=== PATIENT | female | born 1970 | race African-American/Black ===

== ENCOUNTER 2019-03-08 07:45 | Emergency (ER) | payer OTHER ==
[~2019-03-08] VITALS: Ht 162.6 cm; Wt 127.9 kg
[2019-03-08 08:05] VITALS: Ht 162.6 cm; Wt 127.9 kg
[2019-03-08 08:54] LABS: CALCIUM 9.2 mg/dL (8.5-10.1); CHLORIDE SERUM 100 mmol/L (98-107); CREATININE SERUM 0.6 mg/dL (0.6-1.0); GFR1 > 60 mL/min; GLUCOSE SERUM 145 mg/dL (74-106); POTASSIUM SERUM 3.8 mmol/L (3.5-5.1); SODIUM SERUM 136 mmol/L (136-145)
[2019-03-08 08:59] LABS: ALBUMIN 3.7 g/dL (3.4-5.0); ALKALINE PHOSPHATASE 71 U/L (46-116); ALT/SGPT 68 U/L (14-59); AST/SGOT 42 U/L (15-37); BILIRUBIN TOTAL 0.27 mg/dL (0.20-1.00); PLATELET COUNT 379 x10^3mcL (130-400)
[2019-03-08 09:02] LABS: RED CELL DISTRIBUTION WIDTH 15.7 % (11.5-14.5)
[2019-03-08 09:08] LABS: ATYPICAL LYMPH 2 %; BAND NEUTROPHIL 0 % (0-10); BASOPHIL 0 % (0-2); MONOCYTE 4 % (0-7); SEGMENTED NEUTROPHILS 56 % (37-75)
[2019-03-08 09:11] LABS: PLATELET MORPHOLOGY GIANT PLATELET SEEN; rbc morphology (normal/abnorm) ABNORMAL (NORMAL); tear drop cell (dacryocyte) 1+
[2019-03-08 11:58] VITALS: BP 156/83
== END 2019-03-08 11:58 | disposition home or self-care (01) ==
LOC: ED 07:45
PROVIDERS: Emergency Medicine
DX: I10 Essential (primary) hypertension (principal); R51 Headache; Z87.19 Personal history of other diseases of the digestive system; Z90.711 Acquired absence of uterus with remaining cervical stump; Z98.890 Other specified postprocedural states
CPT/HCPCS: J0360; J1885